=== PATIENT | female | born 1940 | race Caucasian/White ===

== ENCOUNTER → 2019-08-07 15:49 | Outpatient (CLI) | payer MEDICARE ==
[2019-08-07 16:06] LABS: BASOPHILS 0.6 % (0-2); EOSINOPHILS 3.4 % (0-7); HEMATOCRIT 34.8 % (36.0-48.0); IMMATURE GRANULOCYTES 0.1 % (0-5); MCH 34.1 pg (26.0-34.0); MCHC 31.6 g/dL (31.0-37.0); MCV 107.7 fL (80.0-100.0); MEAN PLATELET VOLUME 9.5 fL (7.4-10.4); MONOCYTES 7.1 % (2-11); NEUTROPHILS 59.8 % (40-80); PLATELET COUNT 240 10x3/uL (130-400); RBC 3.23 10x6/uL (4.00-5.40); RDW 12.5 % (11.5-14.5); WBC 9.1 10x3/uL (4.8-10.8)
== END | disposition home or self-care (01) ==
LOC: D.LAB 15:49
PROVIDERS: ATTEND Family Medicine
DX: R19.7 Diarrhea, unspecified (principal); R63.4 Abnormal weight loss; R53.83 Other fatigue